=== PATIENT | female | born 1985 | race Caucasian/White ===

== ENCOUNTER 2021-03-13 10:07 | Emergency (ER) | payer OTHER ==
[~2021-03-13] VITALS: Ht 167.6 cm; Wt 81.6 kg
[2021-03-13] MEDS ORDERED: SODIUM CHLORIDE 0.9% 1000ML 1,000 ML IV STA (10:28)
[2021-03-13] MEDS ORDERED: SODIUM CHLORIDE 0.9% 1000ML 1,000 ML ONE (10:41)
[2021-03-13] MEDS ORDERED: LORAZEPAM INJ 2 MG/ML VIAL IV ONE (10:45)
[2021-03-13] MEDS ORDERED: LORAZEPAM INJ 2 MG/ML VIAL ONE (10:59)
[2021-03-13] MEDS ORDERED: METOCLOPRAMIDE HCL 10 MG/2ML VIAL IV ONE (11:00)
[2021-03-13] MEDS ORDERED: ONDANSETRON ODT8 MG PO (11:09)
[2021-03-13] MEDS ORDERED: PROMETHAZINE HCL (IM) 25 MG/ML VIAL IM ONE (11:44)
[2021-03-13] MEDS ORDERED: PROMETHAZINE 25MG/ NS 50ML (IV) IV ONE (12:00)
== END 2021-03-13 13:30 | disposition home or self-care (01) ==
LOC: FSED 10:15
DX: R11.15 Cyclical vomiting syndrome unrelated to migraine (principal); M79.7 Fibromyalgia; M35.00 Sjogren syndrome, unspecified
CPT/HCPCS: 80048; 80076; 85025; 99284; J2060; J2550; J2765; J7030